=== PATIENT | male | born 1995 | race African-American/Black ===

== ENCOUNTER 2021-01-27 08:04 | Inpatient (IN) | payer BC ==
[2021-01-27] MEDS ORDERED: Dexamethasone 10 MG/ML VIAL ONE ×2 (08:57→10:22)
[2021-01-27] MEDS ORDERED: Ketorolac Tromethamine 30 MG/ML VIAL ONE (08:57)
[2021-01-27 09:34] LABS: ALT (SGPT) 21 U/L (8-55); AST (SGOT) 23 U/L (5-34); Albumin 4.4 g/dL (3.5-5.0); Alkaline Phosphatase 78 U/L (40-110); Anion Gap 14 mmol/L (10-20); BUN (Urea Nitrogen) 11 mg/dL (8.9-20.6); Calc. Creatinine Clearance 0 mL/min (70-130); Calcium 10.1 mg/dL (7.8-10.44); Carbon Dioxide 26 mmol/L (22-29); Chloride 103 mmol/L (98-107); Globulin 3.8 g/dL (2.4-3.5); Glucose 104 mg/dL (70-105); Potassium 3.8 mmol/L (3.5-5.1); Protein, Total 8.2 g/dL (6.0-8.3); Sodium 139 mmol/L (136-145)
[2021-01-27 09:39] LABS: #Eosinphils 0.1 10x3/uL (0.0-0.5); #Monocytes 0.9 10x3/uL (0.0-1.1); #Neutrophils 6.8 10x3/uL (1.5-8.4); %Basophils 0.4 % (0.0-2.0); %Eosinophils 0.9 % (0.0-6.0); %Lymphocytes 15.9 % (18.0-47.0); %Neutrophils 72.5 % (40.0-75.0); Hemoglobin 14.2 g/dL (13.5-17.5); Mean Corpuscular HGB CONC 32.5 g/dL (32.0-36.0); Mean Corpuscular Hemoglobin 27.6 pg (27.0-33.0); Mean Corpuscular Volume 84.9 fl (81.2-95.1); Mean Platelet Volume 9.2 fl (7.4-10.4); Platelet Count 343 10x3/uL (150-450); RBC Distribution Width 12.8 % (11.5-14.5); Red Blood Cell (RBC) Count 5.15 10x6/uL (4.32-5.72); White Blood Cell (WBC) Count 9.4 10x3/uL (3.5-10.5)
[2021-01-27] MEDS ORDERED: Famotidine/PF 20 mg/2ml Vial ONE (10:22)
[2021-01-27] MEDS ORDERED: Ampicillin/Sulbactam 3 GM in Sodium Chloride 0.9% 100 ML IVPB SCH (10:30)
[2021-01-27] MEDS ORDERED: Chlorhexidine Gluconate 15 ML UDCUP SSP SCH (14:00)
[2021-01-27 14:37] LABS: SARS-CoV-2 NAA Rapid Test Not Detected (NotDetected)
[2021-01-27] MEDS ORDERED: PROPOFOL 20 ML ONE ×2 (14:50→15:15)
[2021-01-27] MEDS ORDERED: Lidocaine 4% PF 5 ML AMP ONE (14:51)
[2021-01-27] MEDS ORDERED: Fentanyl 100 MCG/2 ML VIAL ONE ×2 (14:51→15:15)
[2021-01-27] MEDS ORDERED: Ondansetron PF 4 MG/2 ML Vial ONE (14:51)
[2021-01-27] MEDS ORDERED: Rocuronium Bromide 10 MG/ML (10ML VIAL) ONE (14:51)
[2021-01-27] MEDS ORDERED: Succinylcholine 200 MG/10 ml SYRINGE FS ONE (14:51)
[2021-01-27] MEDS ORDERED: Midazolam HCl 2 mg/2 ml Vial ONE (14:51)
[2021-01-27] MEDS ORDERED: Lidocaine 1% PF 5 ML VIAL ONE (14:51)
[2021-01-27] MEDS ORDERED: Dexamethasone 20 MG/5 ML VIAL ONE (14:51)
[2021-01-27] MEDS ORDERED: Oxymetazoline HCl 0.05% ( 15 ML ) ONE (14:56)
[2021-01-27] MEDS ORDERED: Glycopyrrolate 0.2 MG/ML 5 ML SYRINGE ONE (15:54)
[2021-01-27 17:23] VITALS: BMI 27.3
[2021-01-27] MEDS ORDERED: Bisacodyl 5 MG TAB PO PRN (17:37)
[2021-01-27] MEDS ORDERED: Acetaminophen 325 MG TAB PO PRN (17:37)
[2021-01-27] MEDS: HYDROcodone/Acetaminophen 5/325 mg Tablet PO PRN (18:38)
[2021-01-28] MEDS ORDERED: Ondansetron PF 4 MG/2 ML Vial IVP PRN (03:22)
[2021-01-28] MEDS: Ampicillin/Sulbactam 3 GM in Sodium Chloride 0.9% 100 ML IVPB SCH ×4 (04:06→22:58)
[2021-01-28] MEDS: Dextrose 5 %-0.45 % NaCl 1,000 ML IV SCH ×2 (04:12→13:25)
[2021-01-28] MEDS: HYDROcodone/Acetaminophen 5/325 mg Tablet PO PRN ×2 (04:30→09:24)
[2021-01-28 05:33] LABS: #Monocytes 1.3 10x3/uL (0.0-1.1); #Neutrophils 16.5 10x3/uL (1.5-8.4); %Basophils 0.1 % (0.0-2.0); %Lymphocytes 7.1 % (18.0-47.0); %Monocytes 6.9 % (0.0-10.0); %Neutrophils 85.5 % (40.0-75.0); Hemoglobin 13.7 g/dL (13.5-17.5); Mean Corpuscular HGB CONC 32.7 g/dL (32.0-36.0); Mean Corpuscular Hemoglobin 27.3 pg (27.0-33.0); Mean Corpuscular Volume 83.5 fl (81.2-95.1); Mean Platelet Volume 9.4 fl (7.4-10.4); Platelet Count 343 10x3/uL (150-450); Red Blood Cell (RBC) Count 5.02 10x6/uL (4.32-5.72); White Blood Cell (WBC) Count 19.3 10x3/uL (3.5-10.5)
[2021-01-28 05:41] LABS: Anion Gap 15 mmol/L (10-20); BUN (Urea Nitrogen) 17 mg/dL (8.9-20.6); Calc. Creatinine Clearance 111 mL/min (70-130); Calcium 9.9 mg/dL (7.8-10.44); Carbon Dioxide 24 mmol/L (22-29); Chloride 105 mmol/L (98-107); Glucose 102 mg/dL (70-105); Potassium 4.3 mmol/L (3.5-5.1); Sodium 140 mmol/L (136-145)
[2021-01-28] MEDS: Ibuprofen 800 MG TAB PO SCH ×3 (06:12→18:24)
[2021-01-28] MEDS: Chlorhexidine Gluconate 15 ML UDCUP SSP SCH (09:24)
[2021-01-29] MEDS: Ibuprofen 800 MG TAB PO SCH ×2 (01:17→05:56)
[2021-01-29] MEDS: Chlorhexidine Gluconate 15 ML UDCUP SSP SCH ×2 (01:18→08:41)
[2021-01-29] MEDS: Ampicillin/Sulbactam 3 GM in Sodium Chloride 0.9% 100 ML IVPB SCH ×2 (03:45→08:42)
[2021-01-29 05:40] LABS: #Eosinphils 0.2 10x3/uL (0.0-0.5); #Monocytes 0.6 10x3/uL (0.0-1.1); #Neutrophils 4.7 10x3/uL (1.5-8.4); %Basophils 0.5 % (0.0-2.0); %Lymphocytes 35.4 % (18.0-47.0); %Monocytes 6.9 % (0.0-10.0); %Neutrophils 54.6 % (40.0-75.0); Hemoglobin 12.3 g/dL (13.5-17.5); Mean Corpuscular HGB CONC 32.6 g/dL (32.0-36.0); Mean Corpuscular Hemoglobin 27.4 pg (27.0-33.0); Mean Platelet Volume 9.2 fl (7.4-10.4); Platelet Count 288 10x3/uL (150-450); RBC Distribution Width 13.2 % (11.5-14.5); Red Blood Cell (RBC) Count 4.49 10x6/uL (4.32-5.72); White Blood Cell (WBC) Count 8.5 10x3/uL (3.5-10.5)
[2021-01-29] MEDS: Dextrose 5 %-0.45 % NaCl 1,000 ML IV SCH ×2 (06:56→10:32)
[2021-01-29 07:36] VITALS: BP 128/78; TEMP 98.5
[2021-01-29] MEDS: HYDROcodone/Acetaminophen 5/325 mg Tablet PO PRN (08:42)
[2021-02-01 10:16] LABS: Fungus Stain Final report (.)
[2021-02-27 09:14] LABS: Fungus Culture Final report (.)
== END 2021-01-29 11:22 | disposition home or self-care (01) | DRG 857 ==
LOC: CSHERS 08:04 → CSHTELE 16:46
PROVIDERS: ADMIT Otolaryngology; ATTEND Hospitalist
PROC: 0J910ZZ Drainage of Face Subcutaneous Tissue and Fascia, Open Approach (ICD-10-PCS; principal; 2021-01-27)
PROC: 0CTX0Z0 Resection of Lower Tooth, Single, Open Approach (ICD-10-PCS; 2021-01-27)
DX: T81.43XA Infection following a procedure, organ and space surgical site, initial encounter (principal); K12.2 Cellulitis and abscess of mouth; K01.1 Impacted teeth; K21.9 Gastro-esophageal reflux disease without esophagitis; M27.2 Inflammatory conditions of jaws; Z20.822 Contact with and (suspected) exposure to COVID-19
CPT/HCPCS: 36415; 70491; 80048; 80053; 85025; 87070; 87081; 87102; 87205; 87206; 87430; 96365; 96375; 96376; J0295; J1100; J1885; J2250; J2405; J2704; J3010; J3490; J7042; S0028; U0002